=== PATIENT | male | born 1980 | race Caucasian/White ===

== ENCOUNTER 2024-06-21 13:22 | Emergency (ER) | payer OTHER, SELFPAY ==
[2024-06-21 13:30] VITALS: BP 134/99
--- NOTE | 2024-06-21 14:15 | EDRN ---
Reviewed dicharge instructions with patient. Verbalized understanding. Ambulated with steady gait to the lobby.
[2024-06-21 14:20] VITALS: BP 125/90
--- NOTE | 2024-06-21 14:23 | ED.GENMED ---
History of Present Illness
General
Chief Complaint: Anal/Rectal Problem
Source: patient
Exam Limitations: none
Time Seen by Provider: 06/21/24 13:41
History of Present Illness
History of Present Illness:
43-year-old male presents with painful hemorrhoids over the past 3 days. He has been doing cortisone cream and dives. He today he noticed some blood coming from the hemorrhoid during his bath. He notes slight improvement of his discomfort since
then. He was concerned about ongoing bleeding. He is not anticoagulated. He is healthy otherwise. No other complaints at this time
Past History
Past History
ED Past Medical History: None
ED Past Surgical History: None
Social History
Living: with family
Phy Exam
Physical Exam
Physical Exam:
General: Well-appearing male no acute respiratory distress
HEENT: Normocephalic atraumatic
Rectal exam: There is a left-sided hemorrhoid noted with clot noted externally and a small amount of clot noted internally with a small opening. No current bleeding. Slightly tender. No surrounding erythema or fluctuance
Course
Vital Signs
Initial and Last Documented VS:
Initial Vital Signs
Temp Pulse Resp BP Pulse Ox
99.9 F 115 18 134/99 99
06/21/24 13:30 06/21/24 13:30 06/21/24 13:30 06/21/24 13:30 06/21/24 13:30
Last Documented Vital Signs
Temp Pulse Resp BP Pulse Ox
99.9 F 100 18 125/90 100
06/21/24 13:30 06/21/24 14:20 06/21/24 14:20 06/21/24 14:20 06/21/24 14:20
MDM/Problems Addressed
Differential Diagnosis Includes:
Patient has a thrombosed hemorrhoid that has on its own drained. There is a fair amount of clot noted externally small opening in the hemorrhoid with a small amount of clot remaining internally. Patient notes improved symptoms. Had long
discussion with patient regarding options. Discussed role for excision of the remaining thrombosis however given the current opening no need for that at this time. He will continue with warm soaks and steroids and follow-up with his GI doctor. He
has follow-up with them in 2 days. Stable for discharge.
*Critical Care Note
Total Time (30-74mins, 75-104mins- exclusive of procedures): Not Applicable
ED Attending Note
-
Portions of this chart may have been created with voice recognition software.� Occasional wrong word or��sound alike� substitutions may have occurred due to the inherent limitations of voice recognition software.
Discharge Plan
Departure
Patient Disposition: Home (Routine Discharge)
Date of Disposition: 06/21/24
Time of Disposition: 14:26
Patient with high blood pressure during this ER visit?: No
Discharge Problem:
External hemorrhoid, thrombosed
Instructions: Hemorrhoids (DC)
Prescriptions:
No Action
No Current Medications
0
Activity Restrictions/Additional Instructions:
Continue with soaks and steroid. Follow-up with your GI team as planned in 2 days peer return if needed otherwise
Interventions
Interventions:
*Risk Screen - Suicide Last Done: 06/21/24 13:30
*General Assessment Last Done: 06/21/24 13:30
*Neglect/Abuse Screening Last Done: 06/21/24 13:30
ED- Fall Risk Assessment Last Done: 06/21/24 13:51
*ED COVID-19 Vaccine History Last Done: 06/21/24 13:30
*Nursing Disposition Last Done: 06/21/24 14:20
BM-Fxmuze-Ilnflkrfwm Assessment Last Done: 06/21/24 13:51
ED-Skin Assessment Last Done: 06/21/24 13:51
Discharge Date and Time
Discharge Date/Time: 06/21/24 14:20
Print Language: IRISH
== END 2024-06-21 14:20 | disposition home or self-care (01) ==
LOC: EMR 13:22
PROVIDERS: EMERGENCY PHYSICIAN Emergency Medicine; FAMILY PHYSICIAN Family Medicine
DX: K64.5 Perianal venous thrombosis (principal)
CPT/HCPCS: 99282